=== PATIENT | female | born 1970 | race Caucasian/White ===

== ENCOUNTER 2023-08-04 11:03 | Inpatient (IN) | payer MEDICAID ==
[~2023-08-04] VITALS: Ht 162.6 cm; Wt 108.9 kg
[2023-08-04] VITALS (7 sets, daily range): BP systolic 106–130; PULSE 70–102; RESP 11–19; TEMP 97.9–98.5; O2SAT 91–96
[~2023-08-04 11:03] MED LIST: ASPI-1155 PO; BENA1TAB2 PO; GEMF600T89 PO; GLUXR500 PO; ISOS5TAB3 PO; METF-380 PO
[2023-08-04] MEDS ORDERED: NACL 0.9% 1,000 ML IV ONE ×2 (11:30→13:45)
[2023-08-04] MEDS ORDERED: MORPHINE 4 MG INJ. 4 MG/ML VIAL IVP ONE (11:30)
[2023-08-04 12:06] LABS: BASOPHILS # (AUTO) 0.1 K/uL (0.0-0.2); BASOPHILS % (AUTO) 0.7 % (0.0-2.0); EOSINOPHILS # (AUTO) 0.2 K/uL (0.0-0.4); EOSINOPHILS % (AUTO) 1.6 % (0.0-4.0); HEMATOCRIT 41.8 % (36-48); HEMOGLOBIN 13.2 g/dL (12.0-16.0); LYMPHOCYTES % (AUTO) 13.2 % (20.5-51.5); MEAN CORPUSCULAR HEMOGLOBIN 27 pg (27-31); MEAN CORPUSCULAR HGB CONC 32 % (32-36); MEAN CORPUSCULAR VOLUME 85 fL (79.0-98.0); MONOCYTES # (AUTO) 1.5 K/uL (0.0-1.0); NEUTROPHILS # (AUTO) 11.4 K/uL (1.8-7.7); NEUTROPHILS % (AUTO) 74.5 % (40.0-70.0); PLATELET COUNT (AUTO) 477 K/uL (130-430); RED BLOOD CELL COUNT(AUTO) 4.91 MIL/uL (4.2-6.2); RED CELL DISTRIBUTION WIDTH 13.6 % (9.0-15.0); WHITE BLOOD COUNT (AUTO) 15.2 K/uL (4.8-10.8)
[2023-08-04 12:26] LABS: INR 0.9 (0.8-1.2); PROTHROMBIN TIME 9.7 SECS (9.5-12.5)
[2023-08-04 12:30] LABS: ALBUMIN 1.9 g/dL (3.4-4.8); BILIRUBIN,DIRECT 0.1 mg/dL (0.0-0.3); CALCIUM 10.7 mg/dL (8.4-11.0); CREATININE 1.65 mg/dL (0.55-1.30); POTASSIUM 4.8 mmol/L (3.5-5.1); TOTAL BILIRUBIN 0.5 mg/dL (0.0-1.0)
[2023-08-04] MEDS ORDERED: KCL 10 mEq in 50 mL (PREMIX) 50 ML IV SCH (13:45)
[2023-08-04] MEDS ORDERED: KCL 20 mEq in 100 mL (PREMIX) 100 ML IV SCH (13:45)
[2023-08-04] MEDS ORDERED: INSULIN REGULAR, HUMAN 100 UNITS in NS 99 ML IV ONE ×2 (13:45)
[2023-08-04] MEDS ORDERED: POTASSIUM CHLORIDE 30 MEQ in NS 250 ML IV SCH (13:45)
[2023-08-04] MEDS ORDERED: MAGNESIUM SULFATE 50 ML IV SCH (13:45)
[2023-08-04] MEDS ORDERED: DOXYCYCLINE HYCLATE 100 MG CAPSULE PO ONE (13:45)
[2023-08-04] MEDS ORDERED: metroNIDAZOLE 500 mg/NS 100 ML IV ONE (13:45)
[2023-08-04] MEDS ORDERED: cefTRIAXone 1 GM in D5W 50 ML IV ONE (13:45)
[2023-08-04] MEDS ORDERED: POTASSIUM CHLORIDE 40 MEQ in NS 250 ML IV SCH (13:45)
[2023-08-04] MEDS ORDERED: KCL 20 mEq in D5/0.45NS 1000mL 1,000 ML IV SCH (13:45)
[2023-08-04] MEDS ORDERED: DEXTROSE 50% JECT 50 ML DISP.SYRIN IVP PRN (13:45)
[2023-08-04 13:56] LABS: ABG O2 SAT% ESTIMATE 95.5 % (94.0-100.0); BLOOD GAS PH 7.345 (7.350-7.450); BLOOD GAS PO2 80.6 mmHg (75.0-100.0)
[2023-08-04 13:57] LABS: BILIRUBIN,URINE 2+ (NEGATIVE); BLOOD, URINE 1+ (NEGATIVE); CLARITY/URINE CLOUDY (CLEAR); COLOR,URINE YELLOW (YELLOW); GLUCOSE,URINE 3+ (NEGATIVE); KETONES,URINE 2+ (NEGATIVE); LEUKOCYTE ESTERASE ,URINE TRACE (NEGATIVE); NITRITE, URINE NEGATIVE (NEGATIVE); PROTEIN URINE 3+ (NEGATIVE); UROBILINOGEN,URINE 0.2 (0.2-1.0)
[2023-08-04 14:03] LABS: BLOOD GAS BASE EXCESS -7.8 mmol/L (-3.0-3.0); BLOOD GAS HCO3 16.5 mmol/L (21.0-27.0)
[2023-08-04 14:04] LABS: ALLEN'S TEST POSITIVE (P)
[2023-08-04 14:21] LABS: BACTERIA,URINE MANY /HPF (None Seen); MUCUS,URINE 1+ /LPF (None Seen); WBC,URINE 80-100 /HPF (0-3)
[2023-08-04] MEDS ORDERED: cefTRIAXone 1 GM VIAL ONE ×2 (14:39)
[2023-08-04] MEDS ORDERED: metroNIDAZOLE 500 MG TABLET PO ONE (15:15)
[2023-08-04] MEDS ORDERED: NALOXONE HCL 0.4 MG/ML AMP (NARCAN) IVP PRN (15:45)
[2023-08-04 17:19] LABS: PHOSPHORUS 2.9 mg/dL (2.7-4.5)
[2023-08-04 17:22] LABS: ACETONE, SERUM TRACE (NEGATIVE)
[2023-08-04] MEDS: MORPHINE 4 MG INJ. 4 MG/ML VIAL IVP PRN (19:59)
[2023-08-04] MEDS: metroNIDAZOLE 500 MG TABLET PO SCH (22:20)
[2023-08-05] VITALS (25 sets, daily range): BP systolic 101–146; PULSE 85–98; RESP 12–38; TEMP 97.5–98.2; O2SAT 91–98
[2023-08-05] MEDS ORDERED: INSULIN REGULAR, HUMAN 100 UNITS in NS 99 ML IV PRN ×2 (00:45)
[2023-08-05] MEDS: MORPHINE 4 MG INJ. 4 MG/ML VIAL IVP PRN (01:27)
[2023-08-05 02:06] LABS: CALCIUM 9.6 mg/dL (8.4-11.0); CREATININE 1.54 mg/dL (0.55-1.30)
[2023-08-05 04:47] LABS: BASOPHILS # (AUTO) 0.1 K/uL (0.0-0.2); BASOPHILS % (AUTO) 0.7 % (0.0-2.0); EOSINOPHILS # (AUTO) 0.3 K/uL (0.0-0.4); HEMATOCRIT 40.5 % (36-48); HEMOGLOBIN 12.7 g/dL (12.0-16.0); LYMPHOCYTES # (AUTO) 1.9 K/uL (1.0-5.5); LYMPHOCYTES % (AUTO) 14.3 % (20.5-51.5); MEAN CORPUSCULAR HEMOGLOBIN 26 pg (27-31); MEAN CORPUSCULAR HGB CONC 31 % (32-36); MEAN CORPUSCULAR VOLUME 84 fL (79.0-98.0); MONOCYTES # (AUTO) 1.2 K/uL (0.0-1.0); MONOCYTES % (AUTO) 9.2 % (1.7-9.3); NEUTROPHILS % (AUTO) 73.8 % (40.0-70.0); PLATELET COUNT (AUTO) 477 K/uL (130-430); RED BLOOD CELL COUNT(AUTO) 4.83 MIL/uL (4.2-6.2); RED CELL DISTRIBUTION WIDTH 13.6 % (9.0-15.0); WHITE BLOOD COUNT (AUTO) 13.5 K/uL (4.8-10.8)
[2023-08-05] MEDS ORDERED: KCL 20 mEq in D5/0.45NS 1000mL 1,000 ML IV ONE (04:51)
[2023-08-05 04:53] LABS: CREATININE 1.51 mg/dL (0.55-1.30); POTASSIUM 3.9 mmol/L (3.5-5.1)
[2023-08-05 04:58] LABS: ALBUMIN 1.8 g/dL (3.4-4.8); TOTAL BILIRUBIN 0.2 mg/dL (0.0-1.0); TOTAL PROTEIN, SERUM 7.4 g/dL (6.4-8.3)
[2023-08-05] MEDS: metroNIDAZOLE 500 MG TABLET PO SCH ×3 (09:13→21:05)
[2023-08-05] MEDS: MORPHINE 2 MG/ML INJ. SYRINGE IVP PRN ×3 (09:13→22:32)
[2023-08-05] MEDS: cefTRIAXone 1 GM in D5W 50 ML IV SCH (09:19)
[2023-08-05 09:55] LABS: CALCIUM 9.9 mg/dL (8.4-11.0); CREATININE 1.48 mg/dL (0.55-1.30); POTASSIUM 4.5 mmol/L (3.5-5.1)
[2023-08-05] MEDS ORDERED: INSULIN REGULAR, HUMAN 10 UNITS/0.1 ML, 3 ML VIAL IVP ONE (10:30)
[2023-08-05] MEDS ORDERED: INSULIN GLARGINE 100 UNITS/ML, 10 ML VIAL SUBCUT ONE (11:00)
[2023-08-05] MEDS: INSULIN LISPRO SLIDING SCALE 100 UNITS/ML, 3 ML VIAL (humaLOG) SUBCUT PRN (17:22)
[2023-08-05] MEDS: INSULIN GLARGINE 100 UNITS/ML, 10 ML VIAL SUBCUT SCH (20:50)
[2023-08-06] VITALS (13 sets, daily range): BP systolic 103–148; PULSE 65–107; RESP 12–24; TEMP 97.5–98.2; O2SAT 92–97
[2023-08-06] MEDS: MORPHINE 2 MG/ML INJ. SYRINGE IVP PRN ×2 (02:37→20:15)
[2023-08-06] MEDS: metroNIDAZOLE 500 MG TABLET PO SCH ×3 (05:09→22:52)
[2023-08-06 06:00] LABS: BASOPHILS # (AUTO) 0.1 K/uL (0.0-0.2); BASOPHILS % (AUTO) 0.4 % (0.0-2.0); EOSINOPHILS # (AUTO) 0.3 K/uL (0.0-0.4); HEMATOCRIT 36.8 % (36-48); HEMOGLOBIN 11.3 g/dL (12.0-16.0); LYMPHOCYTES # (AUTO) 1.6 K/uL (1.0-5.5); LYMPHOCYTES % (AUTO) 12.7 % (20.5-51.5); MEAN CORPUSCULAR HEMOGLOBIN 26 pg (27-31); MEAN CORPUSCULAR HGB CONC 31 % (32-36); MEAN CORPUSCULAR VOLUME 85 fL (79.0-98.0); MONOCYTES # (AUTO) 1.2 K/uL (0.0-1.0); MONOCYTES % (AUTO) 9.3 % (1.7-9.3); NEUTROPHILS # (AUTO) 9.8 K/uL (1.8-7.7); NEUTROPHILS % (AUTO) 75.6 % (40.0-70.0); PLATELET COUNT (AUTO) 410 K/uL (130-430); RED BLOOD CELL COUNT(AUTO) 4.33 MIL/uL (4.2-6.2); RED CELL DISTRIBUTION WIDTH 13.6 % (9.0-15.0); WHITE BLOOD COUNT (AUTO) 12.9 K/uL (4.8-10.8)
[2023-08-06 06:23] LABS: CALCIUM 9.9 mg/dL (8.4-11.0); CREATININE 1.48 mg/dL (0.55-1.30); POTASSIUM 4.3 mmol/L (3.5-5.1)
[2023-08-06] MEDS: cefTRIAXone 1 GM in D5W 50 ML IV SCH ×2 (09:12→22:43)
[2023-08-06] MEDS: INSULIN GLARGINE 100 UNITS/ML, 10 ML VIAL SUBCUT SCH ×2 (09:16→20:07)
[2023-08-06 09:22] LABS: HEMOGLOBIN A1C > 14 % (<5.7)
[2023-08-06] MEDS: MORPHINE 4 MG INJ. 4 MG/ML VIAL IVP PRN ×2 (10:49→14:13)
[2023-08-06] MEDS: INSULIN LISPRO SLIDING SCALE 100 UNITS/ML, 3 ML VIAL (humaLOG) SUBCUT PRN ×2 (11:43→17:25)
[2023-08-07] MEDS: MORPHINE 4 MG INJ. 4 MG/ML VIAL IVP PRN ×4 (00:20→14:12)
[2023-08-07] MEDS: metroNIDAZOLE 500 MG TABLET PO SCH ×3 (05:16→21:58)
[2023-08-07 06:47] LABS: BASOPHILS % (AUTO) 0.3 % (0.0-2.0); EOSINOPHILS # (AUTO) 0.2 K/uL (0.0-0.4); EOSINOPHILS % (AUTO) 1.6 % (0.0-4.0); HEMATOCRIT 37.1 % (36-48); HEMOGLOBIN 11.6 g/dL (12.0-16.0); LYMPHOCYTES # (AUTO) 1.8 K/uL (1.0-5.5); LYMPHOCYTES % (AUTO) 12.5 % (20.5-51.5); MEAN CORPUSCULAR HEMOGLOBIN 26 pg (27-31); MEAN CORPUSCULAR HGB CONC 31 % (32-36); MEAN CORPUSCULAR VOLUME 84 fL (79.0-98.0); MONOCYTES # (AUTO) 1.3 K/uL (0.0-1.0); MONOCYTES % (AUTO) 9.1 % (1.7-9.3); NEUTROPHILS # (AUTO) 11.1 K/uL (1.8-7.7); NEUTROPHILS % (AUTO) 76.5 % (40.0-70.0); PLATELET COUNT (AUTO) 457 K/uL (130-430); RED CELL DISTRIBUTION WIDTH 13.4 % (9.0-15.0); WHITE BLOOD COUNT (AUTO) 14.5 K/uL (4.8-10.8)
[2023-08-07 07:15] LABS: CALCIUM 10.2 mg/dL (8.4-11.0); CREATININE 1.39 mg/dL (0.55-1.30); POTASSIUM 4.1 mmol/L (3.5-5.1)
[2023-08-07 08:00] VITALS: BP_SYST 109; PULSE 88; RESP 16; TEMP 98.6; O2SAT 93
[2023-08-07] MEDS ORDERED: GLUCOSE (DEXTROSE) ORAL GEL -Adults PO PRN (08:00)
[2023-08-07] MEDS ORDERED: D5W 1,000 ML IV PRN (08:00)
[2023-08-07] MEDS ORDERED: DEXTROSE 50% JECT 50 ML DISP.SYRIN IVP PRN (08:00)
[2023-08-07] MEDS: INSULIN Lispro 100 UNITS/ML, 3 ML VIAL (humaLOG) SUBCUT SCH ×3 (08:45→18:51)
[2023-08-07] MEDS: INSULIN GLARGINE 100 UNITS/ML, 10 ML VIAL SUBCUT SCH ×2 (08:46→21:53)
[2023-08-07 10:54] VITALS: O2SAT 2
[2023-08-07 10:57] VITALS: BP_SYST 109; PULSE 88; RESP 16; TEMP 98.6; O2SAT 93
[2023-08-07 16:00] VITALS: BP_SYST 105; PULSE 98; RESP 17; TEMP 98.9; O2SAT 94
[2023-08-07 19:00] VITALS: BP_SYST 106; PULSE 96; RESP 16; TEMP 98.2; O2SAT 96
[2023-08-07 20:00] VITALS: BP_SYST 126; PULSE 92; RESP 18; TEMP 99.4; O2SAT 92
[2023-08-07] MEDS: HYDROcodone/ACETAMIN 5-325 MG TAB (NORCO/ VICODIN) PO PRN (21:58)
[2023-08-08] VITALS: BP_SYST 127; PULSE 18; RESP 18; TEMP 97.7; O2SAT 93
[2023-08-08 05:57] LABS: CALCIUM 10.4 mg/dL (8.4-11.0); CREATININE 1.48 mg/dL (0.55-1.30); POTASSIUM 3.9 mmol/L (3.5-5.1)
[2023-08-08] MEDS: metroNIDAZOLE 500 MG TABLET PO SCH ×3 (06:04→21:40)
[2023-08-08 06:07] LABS: BASOPHILS % (AUTO) 0.3 % (0.0-2.0); EOSINOPHILS # (AUTO) 0.2 K/uL (0.0-0.4); EOSINOPHILS % (AUTO) 1.4 % (0.0-4.0); HEMOGLOBIN 11.5 g/dL (12.0-16.0); LYMPHOCYTES # (AUTO) 1.7 K/uL (1.0-5.5); LYMPHOCYTES % (AUTO) 12.5 % (20.5-51.5); MEAN CORPUSCULAR HEMOGLOBIN 27 pg (27-31); MEAN CORPUSCULAR HGB CONC 31 % (32-36); MEAN CORPUSCULAR VOLUME 85 fL (79.0-98.0); MONOCYTES # (AUTO) 1.4 K/uL (0.0-1.0); MONOCYTES % (AUTO) 10.4 % (1.7-9.3); NEUTROPHILS # (AUTO) 10.3 K/uL (1.8-7.7); NEUTROPHILS % (AUTO) 75.4 % (40.0-70.0); PLATELET COUNT (AUTO) 485 K/uL (130-430); RED BLOOD CELL COUNT(AUTO) 4.35 MIL/uL (4.2-6.2); RED CELL DISTRIBUTION WIDTH 13.8 % (9.0-15.0); WHITE BLOOD COUNT (AUTO) 13.6 K/uL (4.8-10.8)
[2023-08-08 07:42] VITALS: BP_SYST 107; PULSE 82; RESP 18; TEMP 98; O2SAT 93
[2023-08-08 08:00] VITALS: O2SAT 94
[2023-08-08] MEDS: HYDROcodone/ACETAMIN 5-325 MG TAB (NORCO/ VICODIN) PO PRN ×2 (10:36→16:04)
[2023-08-08 11:28] VITALS: BP_SYST 130; PULSE 81; RESP 16; TEMP 96.4; O2SAT 98
[2023-08-08] MEDS: INSULIN Lispro 100 UNITS/ML, 3 ML VIAL (humaLOG) SUBCUT SCH ×3 (11:30→18:10)
[2023-08-08] MEDS: INSULIN GLARGINE 100 UNITS/ML, 10 ML VIAL SUBCUT SCH ×2 (11:38→21:49)
[2023-08-08 15:33] VITALS: BP_SYST 118; PULSE 107; RESP 16; TEMP 96.4; O2SAT 93
[2023-08-08] MEDS: cefTRIAXone 1 GM in D5W 50 ML IV SCH (15:53)
[2023-08-08 20:00] VITALS: BP_SYST 113; PULSE 87; RESP 18; TEMP 98.2; O2SAT 93
[2023-08-09] VITALS: BP_SYST 107; PULSE 85; RESP 18; TEMP 98.2; O2SAT 94
[2023-08-09] MEDS: HYDROcodone/ACETAMIN 5-325 MG TAB (NORCO/ VICODIN) PO PRN ×2 (04:41→21:55)
[2023-08-09] MEDS: metroNIDAZOLE 500 MG TABLET PO SCH ×3 (06:21→21:45)
[2023-08-09 08:00] VITALS: O2SAT 96
[2023-08-09 08:01] VITALS: BP_SYST 105; PULSE 77; RESP 16; TEMP 97.9; O2SAT 97
[2023-08-09] MEDS: INSULIN Lispro 100 UNITS/ML, 3 ML VIAL (humaLOG) SUBCUT SCH ×3 (09:11→17:00)
[2023-08-09] MEDS: INSULIN GLARGINE 100 UNITS/ML, 10 ML VIAL SUBCUT SCH ×2 (09:12→21:55)
[2023-08-09] MEDS: cefTRIAXone 1 GM in D5W 50 ML IV SCH (09:14)
[2023-08-09 11:23] VITALS: BP_SYST 128; PULSE 80; RESP 16; TEMP 97.1; O2SAT 96
[2023-08-09 15:13] VITALS: BP_SYST 111; PULSE 82; RESP 16; TEMP 98.4; O2SAT 98
[2023-08-09 20:00] VITALS: BP_SYST 146; RESP 20; TEMP 99; O2SAT 91
[2023-08-10] VITALS (7 sets, daily range): BP systolic 128–139; PULSE 84–89; RESP 17–18; TEMP 98–98.4; O2SAT 94–98
[2023-08-10 06:06] LABS: HEMATOCRIT 37.7 % (36-48); HEMOGLOBIN 11.9 g/dL (12.0-16.0); MEAN CORPUSCULAR HEMOGLOBIN 27 pg (27-31); MEAN CORPUSCULAR HGB CONC 32 % (32-36); MEAN CORPUSCULAR VOLUME 84 fL (79.0-98.0); PLATELET COUNT (AUTO) 564 K/uL (130-430); RED CELL DISTRIBUTION WIDTH 13.6 % (9.0-15.0)
[2023-08-10 06:30] LABS: CALCIUM 10.3 mg/dL (8.4-11.0); CREATININE 1.01 mg/dL (0.55-1.30); POTASSIUM 3.9 mmol/L (3.5-5.1)
[2023-08-10] MEDS: metroNIDAZOLE 500 MG TABLET PO SCH ×3 (06:41→21:44)
[2023-08-10] MEDS: INSULIN Lispro 100 UNITS/ML, 3 ML VIAL (humaLOG) SUBCUT SCH ×3 (06:45→17:19)
[2023-08-10] MEDS: cefTRIAXone 1 GM in D5W 50 ML IV SCH (09:17)
[2023-08-10] MEDS: INSULIN GLARGINE 100 UNITS/ML, 10 ML VIAL SUBCUT SCH ×2 (11:23→21:00)
[2023-08-10 13:45] LABS: BAND % (MANUAL) 5 % (0-6)
[2023-08-10 13:46] LABS: PLATELET ESTIMATE INCREASED (ADEQUATE)
[2023-08-10 14:32] LABS: EOSINOPHILS % (MANUAL) 1 % (0-7); LYMPHOCYTES % (MANUAL) 15 % (20-46); MONOCYTES % (MANUAL) 12 % (0-11)
[2023-08-10 14:33] LABS: BASOPHILS % (MANUAL) 0 % (0-2)
[2023-08-11 00:11] VITALS: BP_SYST 125; PULSE 68; RESP 17; TEMP 96.5; O2SAT 93
[2023-08-11] MEDS: metroNIDAZOLE 500 MG TABLET PO SCH (06:17)
[2023-08-11] MEDS: INSULIN Lispro 100 UNITS/ML, 3 ML VIAL (humaLOG) SUBCUT SCH ×3 (06:21→18:19)
[2023-08-11 08:30] VITALS: BP_SYST 124; PULSE 89; RESP 18; TEMP 98.7; O2SAT 94
[2023-08-11] MEDS: cefTRIAXone 1 GM in D5W 50 ML IV SCH (08:43)
[2023-08-11] MEDS: INSULIN GLARGINE 100 UNITS/ML, 10 ML VIAL SUBCUT SCH ×2 (09:00→20:19)
[2023-08-11 11:07] VITALS: BP_SYST 124; PULSE 89; RESP 18; TEMP 98.7; O2SAT 96
[2023-08-11 11:24] VITALS: BP_SYST 139; PULSE 89; RESP 15; TEMP 99; O2SAT 93
[2023-08-11 14:55] VITALS: BP_SYST 125; PULSE 90; RESP 16; TEMP 98.6; O2SAT 97
[2023-08-11] MEDS: INSULIN LISPRO SLIDING SCALE 100 UNITS/ML, 3 ML VIAL (humaLOG) SUBCUT PRN ×2 (18:18→20:22)
[2023-08-11 20:00] VITALS: BP_SYST 126; PULSE 89; RESP 17; TEMP 97.5; O2SAT 96
[2023-08-12 00:04] VITALS: BP_SYST 146; PULSE 80; RESP 20; TEMP 99; O2SAT 93
[2023-08-12 00:33] VITALS: O2SAT 96
[2023-08-12] MEDS: HYDROcodone/ACETAMIN 5-325 MG TAB (NORCO/ VICODIN) PO PRN (03:43)
[2023-08-12] MEDS: INSULIN Lispro 100 UNITS/ML, 3 ML VIAL (humaLOG) SUBCUT SCH ×2 (06:13→12:41)
[2023-08-12] MEDS: cefTRIAXone 1 GM in D5W 50 ML IV SCH (08:26)
[2023-08-12] MEDS: INSULIN GLARGINE 100 UNITS/ML, 10 ML VIAL SUBCUT SCH (08:28)
[2023-08-12 08:29] VITALS: BP_SYST 113; PULSE 91; RESP 18; TEMP 98.1; O2SAT 95
[2023-08-12 08:40] VITALS: O2SAT 96
[2023-08-12 11:20] VITALS: BP_SYST 107; PULSE 109; RESP 16; TEMP 97.2; O2SAT 93
[2023-08-12] MEDS ORDERED: LEVO750T64 PO (11:20)
[2023-08-12 11:21] VITALS: BP_SYST 107; PULSE 109; RESP 16; TEMP 97.2; O2SAT 96
[2023-08-12] MEDS ORDERED: INSU100V9 SQ (11:58)
[2023-08-12] MEDS ORDERED: INSU100V SUBCUT (11:59)
[2023-08-12] MEDS: INSULIN LISPRO SLIDING SCALE 100 UNITS/ML, 3 ML VIAL (humaLOG) SUBCUT PRN (12:42)
== END 2023-08-12 13:05 | disposition home health service (06) | DRG 720 ==
LOC: SED 11:03 → SIC 14:52 → SMU 08-06 21:02
PROVIDERS: ADMIT Internal Medicine; ATTEND Internal Medicine
DX: A41.9 Sepsis, unspecified organism (principal); E11.10 Type 2 diabetes mellitus with ketoacidosis without coma; E43 Unspecified severe protein-calorie malnutrition; E87.1 Hypo-osmolality and hyponatremia; I25.10 Atherosclerotic heart disease of native coronary artery without angina pectoris; N39.0 Urinary tract infection, site not specified; E66.9 Obesity, unspecified; N70.93 Salpingitis and oophoritis, unspecified; Z68.41 Body mass index [BMI] 40.0-44.9, adult; Z87.891 Personal history of nicotine dependence; Z79.4 Long term (current) use of insulin; Z98.891 History of uterine scar from previous surgery; Z79.82 Long term (current) use of aspirin; Z79.899 Other long term (current) drug therapy; Z91.148 Patient's other noncompliance with medication regimen for other reason; R06.89 Other abnormalities of breathing
CPT/HCPCS: 36415; 36600; 74018; 76376; 76830-TC; 76856-TC; 76857; 80048; 80053; 80076; 81000; 81001; 81015; 82009; 82306; 82803; 82962; 83037; 83605; 83690; 83735; 84100; 84478; 85007; 85025; 85027; 85610-TC; 87040; 87081; 87086; 96365; 96375; 97110-GP; 97116-GP; 97530-GP; 99291; J0696; J1815; J2270; J3490; J7060